=== PATIENT | male | born 1950 | race Native Hawaiian/Other Pacific Islander ===

== ENCOUNTER 2016-06-26 11:58 | Outpatient (CLI) | payer OTHER ==
[~2016-06-26 11:58] MED LIST: ACET-689 PO; ALBU90AE13; ALBU90AE13 INH; ASTELIN NASA137 MCG; AZEL137S; BUDE1AER5 INH; CEPH500C20 PO; CITALOPRAM10 MG OR; CITALOPRAM10 MG PO; CITALOPRAM20 MG OR; CITALOPRAM20 MG PO; CLARITIN10 MG OR; CLON0.5T36 PO; FLONASE0.05 %; FLUT0.05 NAS; FURO20TA67 PO; MELOXICAM15 MG OR; METOPROLOL25 M1 PO; PERMETHRIN5 % EX; TAMS0.4C PO; TIZA4TAB5 PO
== END 2016-06-26 22:51 | disposition home or self-care (01) ==
LOC: LAB 11:58
DX: N39.0 Urinary tract infection, site not specified (principal)
CPT/HCPCS: 81000; 87088

== ENCOUNTER 2016-06-27 10:18 | Outpatient (CLI) | payer OTHER ==
[2016-06-27 11:00] LABS: PLATELET COUNT 144 K/uL (142-355)
[2016-06-27 11:21] LABS: POTASSIUM 4.2 mmol/L (3.6-5.2); SODIUM 138 mmol/L (136-145)
== END 2016-06-27 19:31 | disposition home or self-care (01) ==
LOC: CT 10:18
PROVIDERS: Family Medicine
DX: G45.9 Transient cerebral ischemic attack, unspecified (principal); N40.0 Benign prostatic hyperplasia without lower urinary tract symptoms; I10 Essential (primary) hypertension; R60.0 Localized edema; Z79.899 Other long term (current) drug therapy; Z51.81 Encounter for therapeutic drug level monitoring; F03.90 Unspecified dementia, unspecified severity, without behavioral disturbance, psychotic disturbance, mood disturbance, and anxiety; E78.4 Other hyperlipidemia; E55.9 Vitamin D deficiency, unspecified
CPT/HCPCS: 36415; 80053; 80061; 82306; 82550; 83735; 84100; 84153; 84439; 84443; 84484; 84550; 85027; 85610; 93005

== ENCOUNTER 2016-10-08 11:58 | Outpatient (CLI) | payer OTHER ==
[2016-10-08 12:11] LABS: PLATELET COUNT 172 K/uL (142-355)
[2016-10-08 12:44] LABS: POTASSIUM 3.6 mmol/L (3.6-5.2); SODIUM 140 mmol/L (136-145)
== END 2016-10-08 13:00 | disposition home or self-care (01) ==
LOC: LAB 11:58
PROVIDERS: Family Medicine
DX: R19.7 Diarrhea, unspecified (principal); I10 Essential (primary) hypertension
CPT/HCPCS: 80053; 82272; 83735; 85027; 87045; 87205; 87328; 87329; 87493; 87798; 87899

== ENCOUNTER 2016-12-25 11:11 | Outpatient (CLI) | payer OTHER ==
[2016-12-25 13:47] LABS: POTASSIUM 3.3 mmol/L (3.6-5.2); SODIUM 136 mmol/L (136-145)
== END 2016-12-25 18:55 | disposition home or self-care (01) ==
LOC: LAB 11:11
PROVIDERS: Family Medicine
DX: M54.5 Low back pain (principal); K59.09 Other constipation; N40.0 Benign prostatic hyperplasia without lower urinary tract symptoms; R10.84 Generalized abdominal pain
CPT/HCPCS: 36415; 80048; 81000; 83735; 84153

== ENCOUNTER 2017-01-23 09:49 | Outpatient (CLI) | payer OTHER | END 2017-01-23 10:50 | disposition home or self-care (01) | LOC: LABW 09:49 | PROVIDERS: Nurse Practitioner Adult Health | DX: E78.2 Mixed hyperlipidemia (principal); Z79.899 Other long term (current) drug therapy; Z51.81 Encounter for therapeutic drug level monitoring | CPT/HCPCS: 36415; 80061; 80076 ==

== ENCOUNTER 2017-02-25 13:30 | Outpatient (CLI) | payer OTHER ==
[2017-02-25 13:47] LABS: PLATELET COUNT 158 K/uL (142-355)
[2017-02-25 14:16] LABS: POTASSIUM 3.9 mmol/L (3.6-5.2); SODIUM 137 mmol/L (136-145)
== END 2017-02-25 19:04 | disposition home or self-care (01) ==
LOC: LABW 13:30
PROVIDERS: Internal Medicine Gastroenterology
DX: K59.1 Functional diarrhea (principal)
CPT/HCPCS: 36415; 80053; 85027

== ENCOUNTER 2017-02-26 13:41 | Outpatient (CLI) | payer OTHER | END 2017-02-26 19:12 | disposition home or self-care (01) | LOC: LAB 13:41 | DX: K59.1 Functional diarrhea (principal) | CPT/HCPCS: 82272; 82705; 87015; 87045; 87205; 87324; 87328; 87329; 87449; 87899 ==

== ENCOUNTER 2017-05-07 16:19 | Outpatient (CLI) | payer OTHER | END 2017-05-07 19:42 | disposition home or self-care (01) | LOC: RAD 16:19 | DX: J20.9 Acute bronchitis, unspecified (principal) ==

== ENCOUNTER 2017-06-09 11:11 | Observation (INO) | payer OTHER ==
[~2017-06-09] VITALS: Ht 175.3 cm; Wt 103.4 kg
[2017-06-09 12:18] LABS: PLATELET COUNT 153 K/uL (142-355)
[2017-06-09 13:09] VITALS: BP 151/88; TEMP 97.8; Ht 175.3 cm; Wt 103.4 kg
[2017-06-09 13:24] LABS: POTASSIUM 3.8 mmol/L (3.6-5.2)
--- NOTE | 2017-06-09 14:51 | NUR ---
UNLAMPED HONG AT THIS TIME AND 1000 CCS OF URINE NOTED TO HONG BAG. HONG RECLAMMPED AT THIS TIME
[2017-06-09] MEDS ORDERED: DOCU100C10 PO (14:55)
[2017-06-09] MEDS ORDERED: TAMS0.4C PO (14:57)
[2017-06-09] MEDS ORDERED: CELEXA20 MG PO (14:59)
[2017-06-09] MEDS ORDERED: DONE5TAB PO (15:00)
[2017-06-09] MEDS ORDERED: PRAVACHOL20 MG PO (15:00)
[2017-06-09] MEDS ORDERED: FINA5TAB2 PO (15:01)
[2017-06-09] MEDS ORDERED: INDERAL XL80 MG PO (15:03)
[2017-06-09] MEDS ORDERED: ASPIR-8181 MG PO ×2 (15:04→15:05)
[2017-06-09 16:00] VITALS: BP 151/88; TEMP 97.8
[2017-06-09 20:00] VITALS: BP 189/82; TEMP 97.9
[2017-06-10] VITALS: BP 157/68; TEMP 97.9
[2017-06-10 04:00] VITALS: BP 159/67; TEMP 98.6
[2017-06-10 08:10] VITALS: BP 124/72; TEMP 98.4
[2017-06-10 12:00] VITALS: BP 126/66; TEMP 98.3
--- NOTE | 2017-06-10 12:31 | NUR ---
PT UP AND IN SHOWER AT THIS TIME WITH ASSISTANCE FROM .
--- NOTE | 2017-06-10 15:36 | NUR ---
20G IV TO THE LEFT FOREARM D/C AT THIS TIME WITH TIP INTACT. DISCHARGE INSTRUCTIONS WERE GIVEN TO PATIENT AND . PT AND VERBALIZED UNDERSTANDING. PT IS AWAITING RIDE HOME AT THIS TIME.
--- NOTE | 2017-06-10 16:34 | NUR ---
D/C'D VIA WHEELCHAIR TO POV WITH FAMILY.
== END 2017-06-10 16:30 | disposition home or self-care (01) ==
LOC: MED/SURG 11:11
PROVIDERS: ADMIT Family Medicine
DX: J40 Bronchitis, not specified as acute or chronic (principal); E86.0 Dehydration; F03.90 Unspecified dementia, unspecified severity, without behavioral disturbance, psychotic disturbance, mood disturbance, and anxiety
CPT/HCPCS: 80053; 81000; 85027; 87070; 87205; 87899; 94640; 94644; 94645; 94664; 94760; 99220; G0378; G0379; J2920

== ENCOUNTER 2017-07-22 10:44 | Outpatient (CLI) | payer OTHER ==
[~2017-07-22 10:44] MED LIST changes: +ASPIR-8181 MG PO; +CELEXA20 MG PO; +DOCU100C10 PO; +DONE5TAB PO; +FINA5TAB2 PO; +INDERAL XL80 MG PO; +PRAVACHOL20 MG PO
== END 2017-07-22 22:55 | disposition home or self-care (01) ==
LOC: LABW 10:44
PROVIDERS: Nurse Practitioner Adult Health
DX: I25.10 Atherosclerotic heart disease of native coronary artery without angina pectoris (principal); E78.2 Mixed hyperlipidemia; Z79.899 Other long term (current) drug therapy; Z51.81 Encounter for therapeutic drug level monitoring
CPT/HCPCS: 36415; 80061; 80076

== ENCOUNTER 2017-11-17 10:30 | Outpatient (CLI) | payer OTHER ==
[2017-11-17 11:17] LABS: PLATELET COUNT 136 K/uL (142-355)
[2017-11-17 11:27] LABS: POTASSIUM 3.8 mmol/L (3.6-5.2)
== END 2017-11-17 20:26 | disposition home or self-care (01) ==
LOC: LABW 10:30
PROVIDERS: Specialist
DX: R07.2 Precordial pain (principal); R93.1 Abnormal findings on diagnostic imaging of heart and coronary circulation
CPT/HCPCS: 36415; 80053; 85027

== ENCOUNTER 2018-02-24 12:58 | Outpatient (CLI) | payer OTHER | END 2018-02-24 21:24 | disposition home or self-care (01) | LOC: LABW 12:58 | PROVIDERS: Nurse Practitioner Adult Health | DX: I25.10 Atherosclerotic heart disease of native coronary artery without angina pectoris (principal); E78.2 Mixed hyperlipidemia; Z79.899 Other long term (current) drug therapy; R53.82 Chronic fatigue, unspecified | CPT/HCPCS: 36415; 80061; 80074; 80076; 83036 ==

== ENCOUNTER 2018-05-15 11:59 | Outpatient (CLI) | payer OTHER | END 2018-05-15 20:26 | disposition home or self-care (01) | LOC: LABW 11:59 | DX: N39.0 Urinary tract infection, site not specified (principal) | CPT/HCPCS: 81000; 87077; 87086; 87088; 87186 ==

== ENCOUNTER 2018-05-28 10:05 | Outpatient (CLI) | payer OTHER | END 2018-05-28 23:25 | disposition home or self-care (01) | LOC: RAD 10:05 | DX: G24.3 Spasmodic torticollis (principal); H50.15 Alternating exotropia; D32.0 Benign neoplasm of cerebral meninges ==

== ENCOUNTER 2018-06-03 11:37 | Outpatient (CLI) | payer OTHER | END 2018-06-03 19:20 | disposition home or self-care (01) | LOC: RAD 11:37 | DX: R05 Cough (principal); N39.0 Urinary tract infection, site not specified | CPT/HCPCS: 87088 ==

== ENCOUNTER 2018-06-10 15:46 | Emergency (ER) | payer OTHER ==
[~2018-06-10] VITALS: Ht 182.9 cm; Wt 106.6 kg
[2018-06-10 15:50] VITALS: TEMP 97.8
[2018-06-10 18:11] VITALS: BP 125/68
== END 2018-06-10 18:11 | disposition home or self-care (01) ==
LOC: ED 15:46
PROC: 2W39X1Z Immobilization of Left Upper Extremity using Splint (ICD-10-PCS; principal; 2018-06-10)
DX: S42.215A Unspecified nondisplaced fracture of surgical neck of left humerus, initial encounter for closed fracture (principal); W01.0XXA Fall on same level from slipping, tripping and stumbling without subsequent striking against object, initial encounter; Y92.89 Other specified places as the place of occurrence of the external cause
CPT/HCPCS: 99283

== ENCOUNTER 2018-07-02 15:49 | Outpatient (CLI) | payer OTHER | END 2018-07-02 20:00 | disposition home or self-care (01) | LOC: RAD 15:49 | DX: I83.899 Varicose veins of unspecified lower extremity with other complications (principal) ==

== ENCOUNTER 2018-10-01 12:06 | Outpatient (CLI) | payer OTHER | END 2018-10-01 23:47 | disposition home or self-care (01) | LOC: RAD 12:06 | DX: S29.8XXA Other specified injuries of thorax, initial encounter (principal) ==

== ENCOUNTER 2019-05-07 11:57 | Outpatient (CLI) | payer OTHER | END 2019-05-07 16:00 | disposition home or self-care (01) | LOC: LAB 11:57 | DX: J11.1 Influenza due to unidentified influenza virus with other respiratory manifestations (principal) | CPT/HCPCS: 87502 ==

== ENCOUNTER 2020-03-21 15:28 | Inpatient (IN) | payer OTHER ==
[~2020-03-21] VITALS: Ht 182.9 cm; Wt 90.0 kg
[2020-03-21] VITALS (11 sets, daily range): BP systolic 131–172; BP diastolic 61–84; TEMP 97.6–99.1; Ht 182.9 cm; Wt 90.0 kg
[2020-03-21 16:17] LABS: PLATELET COUNT 130 K/uL (142-355)
[2020-03-21] MEDS ORDERED: DONEPEZIL HYDRO10 M1 PO (16:21)
[2020-03-21 16:22] LABS: POTASSIUM 3.5 mmol/L (3.6-5.2)
[2020-03-21] MEDS ORDERED: SINEMET PO (16:22)
[2020-03-21] MEDS ORDERED: CITALOPRAM40 MG PO (16:23)
[2020-03-21] MEDS ORDERED: QUETIAPINE25 MG PO (16:23)
[2020-03-21] MEDS ORDERED: TAMSULOSIN0.4 MG PO (16:24)
[2020-03-21] MEDS ORDERED: MELATONIN3 M1 PO (16:25)
[2020-03-21] MEDS ORDERED: CLON1TAB18 PO (16:25)
[2020-03-22] VITALS: BP 158/84; TEMP 98.7
[2020-03-22 04:00] VITALS: BP 166/86; TEMP 99.6
[2020-03-22 05:34] LABS: PLATELET COUNT 114 K/uL (142-355)
[2020-03-22 05:55] LABS: POTASSIUM 3.3 mmol/L (3.6-5.2)
[2020-03-22 08:00] VITALS: BP 152/91; TEMP 98.6
[2020-03-22 12:00] VITALS: BP 170/84; TEMP 98.3
[2020-03-22 16:00] VITALS: BP 147/84; TEMP 98.3
[2020-03-22 20:00] VITALS: BP 177/89; TEMP 98.4
[2020-03-23] VITALS: BP 169/81; TEMP 98.1
[2020-03-23 04:00] VITALS: BP 176/92; TEMP 98.4
[2020-03-23 04:47] LABS: PLATELET COUNT 104 K/uL (142-355)
[2020-03-23 05:04] LABS: POTASSIUM 3.5 mmol/L (3.6-5.2)
[2020-03-23 08:00] VITALS: BP 176/82; TEMP 98.1
[2020-03-23 11:22] VITALS: BP 173/80; TEMP 98.4
[2020-03-23 16:00] VITALS: BP 164/77; TEMP 98.5
[2020-03-23 19:51] VITALS: BP 169/86; TEMP 98.5
[2020-03-24 00:16] VITALS: BP 173/80; TEMP 98.9
[2020-03-24 03:51] VITALS: BP 176/84; TEMP 98.6
[2020-03-24 04:43] LABS: PLATELET COUNT 112 K/uL (142-355)
[2020-03-24 05:04] LABS: POTASSIUM 3.6 mmol/L (3.6-5.2)
[2020-03-24 08:00] VITALS: BP 171/87; TEMP 98.2
[2020-03-24 12:00] VITALS: BP 187/94; TEMP 98.6
== END 2020-03-24 17:20 | disposition home health service (06) | DRG 641 ==
LOC: ED 15:33 → MED/SURG 20:45
PROVIDERS: Family Medicine; ADMIT Family Medicine; ATTEND Family Medicine
DX: E86.0 Dehydration (principal); R63.0 Anorexia; E87.6 Hypokalemia; I10 Essential (primary) hypertension; R53.83 Other fatigue; R31.9 Hematuria, unspecified; D64.89 Other specified anemias; G30.8 Other Alzheimer's disease; F02.80 Dementia in other diseases classified elsewhere, unspecified severity, without behavioral disturbance, psychotic disturbance, mood disturbance, and anxiety; G20 Parkinson's disease; R53.1 Weakness; Z91.81 History of falling; M54.5 Low back pain; K59.09 Other constipation; J44.9 Chronic obstructive pulmonary disease, unspecified; F41.8 Other specified anxiety disorders
CPT/HCPCS: 36415; 51702; 80053; 81000; 85027; 87635; 96360; 96361; 96375; 99284; J1885; J3490; U0003